=== PATIENT | male | born 1975 | race Caucasian/White ===

== ENCOUNTER 2016-09-09 20:07 | Emergency (ER) | payer BC ==
[~2016-09-09] VITALS: Ht 172.7 cm; Wt 99.7 kg
[2016-09-09 20:12] VITALS: Ht 172.7 cm; Wt 99.7 kg
[2016-09-09] MEDS ORDERED: DEXT1LIQ58 PO (20:52)
[2016-09-09] MEDS ORDERED: AZITHROMYCIN 250 MG TAB PO STA (20:59)
[2016-09-09] MEDS ORDERED: AZITTAB PO (21:02)
[2016-09-09 21:37] VITALS: BP 138/88; PULSE 102; TEMP 37.4; O2SAT 97
--- NOTE | 2016-09-09 22:57 | EMERGENCY ROOM VISIT NOTE ---
History Report prepared by Fannie: Madi Lagos Under the Supervision of: Dr. Jose Singer D.O. First contact with patient: 20:48 Chief Complaint: COUGH Stated Complaint: COUGH History of Present Illness The patient is a 41 year old male who presents to the Emergency Room with complaints of a worsening cough for the past week. The cough produces thick yellow mucous. The patient started to experience flu-like symptoms with his cough one week ago. NyQuil was helping his symptoms. The patient's other symptoms resolved yesterday, which is when he had his last dose of NyQuil. The patient is traveling this coming weekend and would like to rule out pneumonia before he gets on the plain. Source of History: patient Onset: one week Position: other (respiratory) Quality: other (productive cough) Timing: worsening Modifying Factors (Relieving): other (NyQuil) Review of Systems See HPI for pertinent positives & negatives. A total of 10 systems reviewed and were otherwise negative. Past Medical & Surgical Medical Problems: (1) Conjunctivitis Family History Cancer Heart disease Hypertension Lung disease Social History Smoking Status: Never Smoker Marital Status: Housing Status: lives with family Occupation Status: employed Current/Historical Medications Scheduled Azithromycin (Zithromax Z-Derek), 0 PO UD Dextromethorphan-Phenylephrine (Vicks Dayquil Cold & Flu), 30 ML PO PRN UD Allergies Coded Allergies: Penicillins (Unverified Allergy, Mild, 08/16/09) Physical Exam Vital Signs Date Time Temp Pulse Resp B/P Pulse Ox O2 Delivery O2 Flow Rate FiO2 09/09/16 21:37 37.4 102 21 138/88 97 09/09/16 21:35 102 21 138/88 97 Room Air 09/09/16 21:34 97 Room Air 09/09/16 20:12 37.4 108 21 144/86 96 Room Air Physical Exam CONSTITUTIONAL/VITAL SIGNS: Reviewed / noted above. GENERAL: Non-toxic in appearance. INTEGUMENTARY: Warm, dry, and Fox. HEAD: Normocephalic. EYES: without scleral icterus or trauma. ENT/OROPHARYNX: clear and moist. LYMPHADENOPATHY/NECK: Is supple without lymphadenopathy or meningismus. RESPIRATORY: Lungs clear and equal. CARDIOVASCULAR: Regular rate and rhythm. GI/ABDOMEN: Soft and nontender. No organomegaly or pulsatile mass. No rebound or guarding. Normal bowel sounds. EXTREMITIES: Warm and well perfused. BACK: No CVA tenderness. NEUROLOGICAL: Intact without focal deficits. PSYCHIATRIC: normal affect. MUSCULOSKELETAL: Normally developed with good muscle tone. Medical Decision & Procedures Medications Administered Medications (Trade) Dose Ordered Sig/Vivienne Route Start Time Stop Time Status Last Admin Dose Admin Azithromycin (Zithromax Tab) 500 mg NOW STAT PO 09/09/16 20:59 09/09/16 21:01 DC 09/09/16 21:31 500 MG ED Course 2049: Previous medical records were reviewed. The patient was evaluated in room B9. A complete history and physical examination was performed. 2100: Discussed the treatment plan with the patient. He verbalized understanding and agreement. The patient is ready for discharge. Medical Decision The differential that was considered includes acute myocardial infarction, acute coronary syndrome, myocarditis, pericarditis, pericardial effusions / tamponad, esophageal perforation, pulmonary embolism, pneumonia, pneumothorax , cardiomyopathy, congestive heart, anemia , COPD/asthma exacerbation. This is a 41-year-old male who presents to the ED with a chief complaint of cough for the past week. He states it is getting worse. Coughing up yellow sputum. His vital signs stable. His physical exam was unremarkable. He does have a prominent cough. Lungs were clear. Symptoms are likely consistent with a bronchitis. He was started on Z-Derek. Impression Primary Impression: Acute bronchitis Scribe Attestation The scribe's documentation has been prepared under my direction and personally reviewed by me in its entirety. I confirm that the note above accurately reflects all work, treatment, procedures, and medical decision making performed by me. Departure Information Dispostion Home / Self-Care Prescriptions Azithromycin (ZITHROMAX Z-DEREK) 250 Mg Tab 0 PO UD, #1 PKT 2 TABS DAY 1, THEN 1 TAB DAILY FOR 4 DAYS Prov: Jose Singer D.O. 09/09/16 Referrals Damaso Keyes III, M.D. (PCP) Forms HOME CARE DOCUMENTATION FORM, IMPORTANT VISIT INFORMATION Patient Instructions Bronchitis Acute, My [facility] Additional Instructions Zithromax as prescribed. See your doctor if no improvement in the next 7-10 days. Return for worsening or new concerns.
== END 2016-09-09 21:37 | disposition home or self-care (01) ==
LOC: C.EDB 20:10
DX: J20.9 Acute bronchitis, unspecified (principal); Z88.0 Allergy status to penicillin; Z80.9 Family history of malignant neoplasm, unspecified; Z82.49 Family history of ischemic heart disease and other diseases of the circulatory system

== ENCOUNTER 2019-08-09 16:02 | Observation (INO) ==
[2019-08-09] MEDS ORDERED: LABETALOL HCL IV 5 MG/ML 20ML IV STA (16:11)
[2019-08-09] MEDS ORDERED: ASPIRIN CHEW 324 MG PO STA (16:12)
--- NOTE | 2019-08-09 16:26 | Emergency Department Note ---
Entered by Flor High acting as a scribe for Prashanth Ramos MD History of Present Illness General Chief complaint: Chest Pain Stated complaint: CHEST PAIN Time Seen by Provider: 08/09/19 16:08 Source: patient History of Present Illness Onset (ago): day(s) 1 Location: chest Pain Consistency: + intermittent Maximum Pain Intensity: 2 Current Pain Intensity: 2 Quality: + sharp Relieved By: + none Exacerbated By: not by movement Associated symptoms: + chest pain; no diaphoresis, no nausea/vomiting and no shortness of breath Treatments prior to arrival: none The patient is a 44 year old male who presents to the Emergency Room with comp laints of chest pain that started today. The patient notes that yesterday, a nurse came around his workplace and took his blood pressure, and it was 180/100. The patient notes a history of hypertension in his family in his mother and grandfather, who before age 65. Both of his parents had diabetes. He has never been diagnosed with hypertension, but he notes that he has not seen his PCP for several years. The patient notes that today, he experienced some chest pain and discomfort in the middle of his chest. Today he went to the gym and exercised for about an hour, and he did not feel any chest discomfort. He notes that at certain times at work today, he would experience slight chest pain. The patient reports that his work has not been overly stressful lately, and he rate his pain at a 2 or 3. The patient states that the discomfort lasts for several minutes. He denies shortness of breath, nausea, and diaphoresis. The patient denies smoking. Home Medications Home Medications Medication Instructions Recorded Confirmed Type No Known Home Medications 08/09/19 08/09/19 History Allergies Allergy/AdvReac Type Severity Reaction Status Date / Time Penicillins Allergy Mild Rash Unverified 08/09/19 19:23 Past Med/Surg History Medical History No pertinent past medical history Surgical History No pertinent past surgical history Family History Mother Hypertension Diabetes Grandfather Hypertension Coronary heart disease CO age 60 Father Diabetes Social History Preferred Language: Wolof Communication Ability: Effective Machine Clerical Verifier Required: No Beliefs That Will Affect Care: None Current Living Situation: Spouse Feels Safe at Home: Yes Smoking Status: Never smoker Do You Dip or Chew Tobacco: No ; Hx Alcohol Use: No Hx Substance Use: No Review of Systems See HPI for pertinent positives & negatives. and A total of 10 systems reviewed and were otherwise negative Physical Exam Vital Signs Vital Signs - 24 hr 08/09/19 16:04 08/09/19 16:45 08/09/19 17:11 Temperature 37.2 C Temperature Source Oral Pulse Rate 107 H 82 Pulse Rate from SpO2 Sensor 83 Pulse Rhythm Regular Respiratory Rate 18 22 Respiratory Effort / Characteristics Non-Labored Spontaneous Respiratory Depth Normal Blood Pressure 201/120 H 142/102 H Blood Pressure Mean 147 109 Blood Pressure Position Sitting Pulse Oximetry 98 96 Oxygen Delivery Method Room Air Room Air Sepsis Recent Fever Within 48 Hours No Sepsis New/Unexplained Change in Mental Status No Sepsis Action Taken by Nursing No Action Required 08/09/19 17:13 08/09/19 17:14 08/09/19 17:16 Temperature Temperature Source Pulse Rate 74 77 78 Pulse Rate from SpO2 Sensor 76 82 80 Pulse Rhythm Respiratory Rate 19 18 19 Respiratory Effort / Characteristics Respiratory Depth Blood Pressure 157/104 H 160/92 H Blood Pressure Mean 119 111 Blood Pressure Position Pulse Oximetry 95 97 96 Oxygen Delivery Method Sepsis Recent Fever Within 48 Hours Sepsis New/Unexplained Change in Mental Status Sepsis Action Taken by Nursing 08/09/19 17:20 08/09/19 17:30 08/09/19 17:31 Temperature Temperature Source Pulse Rate 75 72 76 Pulse Rate from SpO2 Sensor 75 72 77 Pulse Rhythm Respiratory Rate 22 20 21 Respiratory Effort / Characteristics Respiratory Depth Blood Pressure 146/103 H Blood Pressure Mean 117 Blood Pressure Position Pulse Oximetry 96 94 95 Oxygen Delivery Method Sepsis Recent Fever Within 48 Hours Sepsis New/Unexplained Change in Mental Status Sepsis Action Taken by Nursing 08/09/19 17:40 08/09/19 17:46 08/09/19 17:47 Temperature Temperature Source Pulse Rate 79 72 71 Pulse Rate from SpO2 Sensor 75 69 70 Pulse Rhythm Respiratory Rate 17 18 20 Respiratory Effort / Characteristics Respiratory Depth Blood Pressure 150/95 H Blood Pressure Mean 105 Blood Pressure Position Pulse Oximetry 94 97 96 Oxygen Delivery Method Sepsis Recent Fever Within 48 Hours Sepsis New/Unexplained Change in Mental Status Sepsis Action Taken by Nursing 08/09/19 17:50 08/09/19 18:00 08/09/19 18:01 Temperature Temperature Source Pulse Rate 76 87 68 Pulse Rate from SpO2 Sensor 77 81 69 Pulse Rhythm Respiratory Rate 20 22 20 Respiratory Effort / Characteristics Respiratory Depth Blood Pressure 156/87 H Blood Pressure Mean 97 Blood Pressure Position Pulse Oximetry 93 95 95 Oxygen Delivery Method Sepsis Recent Fever Within 48 Hours Sepsis New/Unexplained Change in Mental Status Sepsis Action Taken by Nursing 08/09/19 18:02 08/09/19 18:10 08/09/19 18:16 Temperature Temperature Source Pulse Rate 70 71 72 Pulse Rate from SpO2 Sensor 72 70 73 Pulse Rhythm Respiratory Rate 20 17 21 Respiratory Effort / Characteristics Respiratory Depth Blood Pressure 157/98 H Blood Pressure Mean 115 Blood Pressure Position Pulse Oximetry 95 98 95 Oxygen Delivery Method Sepsis Recent Fever Within 48 Hours Sepsis New/Unexplained Change in Mental Status Sepsis Action Taken by Nursing 08/09/19 18:20 08/09/19 18:30 08/09/19 18:31 Temperature Temperature Source Pulse Rate 71 74 73 Pulse Rate from SpO2 Sensor 71 74 73 Pulse Rhythm Respiratory Rate 23 15 15 Respiratory Effort / Characteristics Respiratory Depth Blood Pressure 149/91 H Blood Pressure Mean 96 Blood Pressure Position Pulse Oximetry 95 97 97 Oxygen Delivery Method Sepsis Recent Fever Within 48 Hours Sepsis New/Unexplained Change in Mental Status Sepsis Action Taken by Nursing 08/09/19 18:40 08/09/19 18:46 08/09/19 18:50 Temperature Temperature Source Pulse Rate 74 74 70 Pulse Rate from SpO2 Sensor 75 71 68 Pulse Rhythm Respiratory Rate 23 21 25 H Respiratory Effort / Characteristics Respiratory Depth Blood Pressure 154/98 H Blood Pressure Mean 107 Blood Pressure Position Pulse Oximetry 96 97 97 Oxygen Delivery Method Sepsis Recent Fever Within 48 Hours Sepsis New/Unexplained Change in Mental Status Sepsis Action Taken by Nursing GENERAL: Patient is in no acute distress. HEENT: No acute trauma, normocephalic atraumatic, mucous membranes moist, no nasal congestion, no scleral icterus. NECK: No stridor, no adenopathy, no meningismus, trachea is midline. LUNGS: Clear to auscultation bilaterally, no wheeze, no rhonchi, breath sounds equal. HEART: Without murmurs gallops or rubs, regular rate and rhythm. CHEST: Nontender chest wall. ABDOMEN: Soft, nontender, bowel sounds positive, no hernias, no peritonitis. EXTREMITIES: No cyanosis or edema, full range of motion of all the joints without pain or difficulty, no signs for acute trauma. NEUROLOGIC: Oriented x 3, no acute motor or sensory deficits, no focal weakness. SKIN: No rash, no jaundice, no diaphoresis. Course Course 1613: Past medical records reviewed. The patient was evaluated in room C01B. A complete history and physical exam was performed. 1740: I spoke to Dr. Jefferson, who recommends keeping the patient overnight due to his high blood pressure. He believes it would be beneficial to control his blood pressure and look at possible medication for regulation. 180: I rechecked on the patient and relayed the cardiologists recommendation. The patient was agreeable with remaining in the hospital for further evaluation. 1818: I spoke to Shanda Martines PA-C, regarding the patient. She agreed to take over care of the patient. Dr. Kendall will evaluate him for further evaluation. The patient understands and is agreeable to the plan. He will be further evaluated. Administered Medications Discontinued Medications Amlodipine Besylate (Norvasc) 5 mg PO NOW ONE Stop: 08/09/19 19:28 Last Admin: 08/09/19 19:38 Dose: 5 mg Documented by: [id number] Aspirin (Aspirin) 324 mg PO NOW STA Stop: 08/09/19 16:13 Last Admin: 08/09/19 17:08 Dose: 324 mg Documented by: [id number] Labetalol HCl (Normodyne) 20 mg IV NOW STA Stop: 08/09/19 16:12 Last Admin: 08/09/19 17:08 Dose: 20 mg Documented by: [id number] Cosigned by: [id number] Medical Decision Making Differential Diagnosis Differential diagnosis includes: hypertension, angina, CO, reflux, gastritis, electrolyte imbalance, as well as others were considered Medical Records Attestation: I reviewed the patient's medical records. Home Medications Current Medication List: was personally reviewed by me Laboratory Data Attestation: I reviewed the patient's lab results. Result diagrams: 08/09/19 17:03 08/09/19 17:03 Lab Results 08/09/19 08/09/19 08/09/19 Range/Units 17:03 17:03 17:03 WBC 5.73 (4.8-10.8) K/uL RBC 5.09 (4.7-6.1) M/uL Hgb 15.5 (14.0-18.0) g/dL Hct 43.7 (42-52) % MCV 85.9 (80-100) fL MCH 30.5 (25-34) pg MCHC 35.5 (32-36) g/dL RDW Std Deviation 40.7 (36.4-46.3) fL RDW Coeff of Hansel 13.0 (11.5-14.5) % Plt Count 198 (130-400) K/uL MPV 9.8 (7.4-10.4) fL Immature Gran % (Auto) 0.2 % Neut % (Auto) 58.7 % Lymph % (Auto) 28.8 % [place] % (Auto) 10.1 % Eos % (Auto) 1.9 % Baso % (Auto) 0.3 % Immature Gran # (Auto) 0.01 (0.00-0.02) K/uL Neut # (Auto) 3.36 (1.4-6.5) K/uL Lymph # (Auto) 1.65 (1.2-3.4) K/uL [place] # (Auto) 0.58 (0.11-0.59) K/uL Eos # (Auto) 0.11 (0-0.5) K/uL Baso # (Auto) 0.02 (0-0.2) K/uL PT 10.6 (9.0-12.0) Seconds INR 1.0 (0.9-1.1) APTT 23.8 (21.0-31.0) Seconds PTT Ratio 0.9 Sodium 139 (136-145) mmol/L Potassium 3.8 (3.5-5.1) mmol/L Chloride 109 H (98-107) mmol/L Carbon Dioxide 26 (21-32) mmol/L Anion Gap 4.0 (3-11) BUN 24 H (7-18) mg/dl Creatinine 0.93 (0.6-1.4) mg/dl Est Cr Clr Drug Dosing 121.3 ml/min Est GFR ( Amer) 114.5 Est GFR (Non-Af Amer) 98.8 BUN/Creatinine Ratio 25.9 H (10-20) Glucose 92 (70-99) mg/dl Calcium 9.5 (8.5-10.1) mg/dl Magnesium 2.0 (1.8-2.4) mg/dl Total Bilirubin 0.4 (0.2-1) mg/dl AST 29 (15-37) U/L ALT 58 (12-78) U/L Alkaline Phosphatase 55 (45-117) U/L Troponin I < 0.015 (0-0.045) ng/ml Total Protein 8.2 (6.4-8.2) gm/dl Albumin 4.5 (3.4-5.0) gm/dl Globulin 3.7 (2.5-4.0) gm/dl Albumin/Globulin Ratio 1.2 (0.9-2) Lipase 135 (73-393) U/L Imaging Data Radiologist's Impression: Radiology results as stated below per my review and the radiologist's interpretation: XR chest 1V portable CLINICAL HISTORY: Atypical chest pain COMPARISON STUDY: No previous studies for comparison. FINDINGS: The cardiac and mediastinal contours are normal. There is no evidence of focal pulmonary consolidation. There is no evidence of failure. No pleural effusions are visualized.[ IMPRESSION: No active disease in the chest. ACT 112: Negative or not required by law. Electronically signed by: Freddie Davila M.D. 08/09/2019 4:44 PM ECG Data Attestation: I personally reviewed and interpreted this ECG as follows: Indication: + chest pain Rate (beats per minute): 92 Rhythm: + normal sinus ECG Intervals/blocks: + Normal QT-c (422) ECG ST segments: + Nonspecific ST abnormalities ECG Findings: no PVCs Blood Pressure Blood Pressure Findings: Elevated blood pressure Blood Pressure Disposition: further management by hospitalist [facility] Narrative There is no leukocytosis or concerning anemia. No coagulopathy. No significant electrolyte abnormality or kidney failure. No liver enzyme elevation. No evidence for pancreatitis. EKG shows a normal sinus rhythm with some nonspecific ST change, no acute ischemia. Cardiac enzyme testing x1 is not consistent with acute cardiac injury. Chest film does not show pneumonia, mediastinal widening or pneumothorax. The patient was given oral aspirin. He was given 10 mg of IV labetalol because of the elevated blood pressure. The patient's blood pressure is now much better controlled. He is currently resting comfortably. He has no chest pain. I talked to the [facility] vacuum truck driver tactical response group officer. Given his risk factors, given the higher blood pressure, I hospital stay and further work-up was felt warranted. Of note, as per my calculation, the patient's heart score is a 3. I talked to the patient about his findings, I spoke with case management. The on-call hospitalist was consulted. Continuous Cardiac Monitoring: An order was placed for continuous cardiac monitoring. The monitor shows a rate of 90 with normal sinus rhythm. Impression & Plan Chest pain, precordial, Hypertensive urgency Discharge Plan Visit Data *Final* Discharge Date/Time: 08/09/19 20:16 Chief Complaint: Chest Pain Stated Complaint: CHEST PAIN ED Provider: Prashanth Ramos Discharge Problem: Chest pain, precordial, Hypertensive urgency Patient Disposition: Admitted As Inpatient Discharge Instructions Interventions: ED Discharge Assessment Last Done: 08/09/19 20:16 Risk - HEART Scoring HEART Score for Major Cardiac Events History: Slightly Suspicious EKG: Non-Specific Repolarization Disturbance Age: 45-64 Years of Age Risk Factors: 1-2 Risk Factors Initial Troponin: Normal Limit Total Points: 3 Risk Level: Low Risk for Major Adverse Cardiac Event HEART Score Interpretation: Score interpretation (as per derivation study): HEART Adverse Cardiac Score Event Risk Management 0-3 0.9-1.7% In the HEART Score study, these patients were discharged. 4-6 12-16.6% In the HEART Score study, these patients were admitted to the hospital. 7-10 50-65% In the HEART Score study, these patients were candidates for early invasive measurements. Original Source: 1. Douglas AJ, [place] BE, Isidro ARCEILA. Chest pain in the emergency room: value of the HEART score. Neth Heart J. 2008; 16(6):191-6. The scribe's documentation has been prepared under my direction and personally reviewed by me in its entirety. I confirm that the note above accurately reflects all work, treatment, procedures, and medical decision making performed by me.
--- NOTE | 2019-08-09 16:46 | XRay Report ---
XR chest 1V portable CLINICAL HISTORY: Atypical chest pain COMPARISON STUDY: No previous studies for comparison. FINDINGS: The cardiac and mediastinal contours are normal. There is no evidence of focal pulmonary co nsolidation. There is no evidence of failure. No pleural effusions are visualized.[ IMPRESSION: No active disease in the chest. ACT 112: Negative or not required by law. Electronically signed by: Freddie Davila M.D. 08/09/2019 4:44 PM
[2019-08-09 17:11] LABS: Basophils # (auto) 0.02 K/uL (0-0.2); Basophils % (auto) 0.3 %; Eosinophils # (auto) 0.11 K/uL (0-0.5); Eosinophils % (auto) 1.9 %; Hematocrit (blood only) 43.7 % (42-52); Hemoglobin 15.5 g/dL (14.0-18.0); Immature Granulocytes # (auto) 0.01 K/uL (0.00-0.02); Immature Granulocytes % (auto) 0.2 %; Lymphocytes # (auto) 1.65 K/uL (1.2-3.4); Lymphocytes % (auto) 28.8 %; Mean Corpuscular Hemoglobin 30.5 pg (25-34); Mean Corpuscular Hgb Conc 35.5 g/dL (32-36); Mean Corpuscular Volume 85.9 fL (80-100); Mean Platelet Volume 9.8 fL (7.4-10.4); Monocytes # (auto) 0.58 K/uL (0.11-0.59); Monocytes % (auto) 10.1 %; Neutrophils # (auto) 3.36 K/uL (1.4-6.5); Neutrophils % (auto) 58.7 %; Platelet Count 198 K/uL (130-400); RDW Standard Deviation 40.7 fL (36.4-46.3); Red Blood Count 5.09 M/uL (4.7-6.1); White Blood Count 5.73 K/uL (4.8-10.8)
[2019-08-09 17:26] LABS: Alanine Aminotransferase 58 U/L (12-78); Albumin Level 4.5 gm/dl (3.4-5.0); Aspartate Aminotransferase 29 U/L (15-37); BUN Creatinine Ratio 25.9 (10-20); Blood Urea Nitrogen 24 mg/dl (7-18); Calcium 9.5 mg/dl (8.5-10.1); Carbon Dioxide 26 mmol/L (21-32); Chloride 109 mmol/L (98-107); Creatinine Clr Calc Pharmacy 121.3 ml/min; Est GFR (African American) 114.5; Est GFR (Non-African American) 98.8; Glucose 92 mg/dl (70-99); Lipase 135 U/L (73-393); Potassium 3.8 mmol/L (3.5-5.1); Sodium 139 mmol/L (136-145)
[2019-08-09 17:27] LABS: Partial Thromboplastin Ratio 0.9; Partial Thromboplastin Time 23.8 Seconds (21.0-31.0); Prothrombin Time 10.6 Seconds (9.0-12.0)
[2019-08-09 17:31] LABS: Albumin Globulin Ratio 1.2 (0.9-2); Alkaline Phosphatase 55 U/L (45-117); Bilirubin,Total 0.4 mg/dl (0.2-1); Globulin 3.7 gm/dl (2.5-4.0); Total Protein 8.2 gm/dl (6.4-8.2); Troponin I < 0.015 ng/ml (0-0.045)
--- NOTE | 2019-08-09 18:01 | Electrocardiogram Report ---
Test Reason : Blood Pressure : / mmHG Vent. Rate : 092 BPM Atrial Rate : 092 BPM P-R Int : 144 ms QRS Dur : 090 ms QT Int : 342 ms P-R-T Axes : 056 058 030 degrees QTc Int : 422 ms Normal sinus rhythm Nonspecific ST abnormality Abnormal ECG No previous ECGs available Confirmed by Josué Lane ([id number]) on 08/09/2019 6:00:55 PM Referred By: REFERRED SELF Confirmed By:Yamil Lane
--- NOTE | 2019-08-09 19:10 | History & Physical Report ---
Date of Service August 09, 2019 Assessment & Plan (1) Chest pain: Pt is 44 y/o M without known PMH presented to ER with c/o left sided chest tightness today at 9AM lasting 5-10 minutes. Denies SOB, diaphoresis, N/V In ER afebrile, P: 107, R: 18, BP: 201/120, 95% on RA. Initial troponin negative. EKG sinus rhythm, non specific ST changes CHEST PAIN R/O ACS. Risk factors: HTN, FH. DDX: Hypertensive Emergency -No recurrent CP since this morning -In ER given 324mg aspirin, labetalol 20mg IV with pulse down to 68, BP down to 156/87 -Monitor Vitals -Repeat EKG in am -Will trend troponin -Echo -lipid panel in am -aspirin -Nitro prn CP and repeat EKG for CP -start amlodipine (2) Hypertensive urgency: Pt with probable untreated underlying HTN In ER initial BP: 201/120 down to 156/87 after IV labetalol 20mg No current CP, dizziness -Start amlodipine -Monitor BP DVT Prophylaxis -Low risk, ambulate Full Code as per discussion with pt Planning to follow with Dr Keyes for routine care (Had appt scheduled for 08/10/2019) Pt was seen and care coordinated with Dr Kendall. See addendum History of Present Illness Chief Complaint: CP Primary Care Provider: Damaso Keyes MD Pt is 44 y/o M without known PMH presented to ER with c/o CP today. Reports today at 9:00AM was sitting at work and started with left chest tightness that lasted 5-10 minutes. Denies any associated SOB, diaphoresis, N/V. No prior treatment. No recurrent CP today. Walked 1 mile on treadmill this morning. Reports walks on treadmill a couple of times a week and never has any CP or SOB. Reports in fall of 2018 had some left sided chest tightness with doing yard work and heavy lifting. States has had his BP checked occasionally and BP's have been elevated in past. Yesterday had nurse check his BP and was 180/100 so he made an appt with PCP on 08/10/2019. Pt hasn't seen PCP for years. Denies fever/chills, diaphoresis, N/V/D/C, RENEE, dizziness, syncope, vision changes, neck pain, SOB, orthopnea, palpitations, cough, sore throat, choking, otalgia, rhinorrhea, abdominal pain, paresthesias, weakness, extremity weakness, extremity edema, rashes, urinary symptoms. Allergies Allergy/AdvReac Type Severity Reaction Status Date / Time Penicillins Allergy Mild Rash Unverified 08/09/19 19:23 Home Medications Home Medications Medication Instructions Recorded Confirmed Type No Known Home Medications 08/09/19 08/09/19 History Past Med/Surg History Medical History No pertinent past medical history Surgical History No pertinent past surgical history Family History Mother Hypertension Diabetes Grandfather Hypertension Coronary heart disease [place] age 60 Father Diabetes Social History Preferred Language: Thai Feels Safe at Home: Yes Smoking Status: Never smoker Hx Alcohol Use: No Hx Substance Use: No Review of Systems Review of Systems: All systems reviewed & are unremarkable except as noted in HPI & below Physical Exam Physical Exam: General: no distress, overweight Head: normocephalic, atraumatic Eyes: PERRL, EOM's intact, conjunctiva non-injected, anicteric ENT: normal inspection external ears, nose, mucous membranes moist Neck: supple, trachea midline Lungs: clear, no respiratory distress, no wheezing/rhonchi/rales CV: RRR, no murmur, no pretibial edema Abd: normal BS, soft, non-tender Ext: no cyanosis, no calf tenderness Neuro: A&O x 3, no focal deficits noted, normal affect Skin: warm, dry Results & Data Vital Signs (Past 12 Hours) Vital Signs Temp Pulse Resp BP Pulse Ox 08/09/19 19:00 78 25 H 98 08/09/19 18:50 70 25 H 97 08/09/19 18:46 74 21 154/98 H 97 08/09/19 18:40 74 23 96 08/09/19 18:31 73 15 149/91 H 97 08/09/19 18:30 74 15 97 08/09/19 18:20 71 23 95 08/09/19 18:16 72 21 157/98 H 95 08/09/19 18:10 71 17 98 08/09/19 18:02 70 20 95 08/09/19 18:01 68 20 156/87 H 95 08/09/19 18:00 87 22 95 08/09/19 17:50 76 20 93 08/09/19 17:47 71 20 96 08/09/19 17:46 72 18 150/95 H 97 08/09/19 17:40 79 17 94 08/09/19 17:31 76 21 146/103 H 95 08/09/19 17:30 72 20 94 08/09/19 17:20 75 22 96 08/09/19 17:16 78 19 160/92 H 96 08/09/19 17:14 77 18 157/104 H 97 08/09/19 17:13 74 19 95 08/09/19 17:11 82 22 142/102 H 96 08/09/19 16:04 37.2 C 107 H 18 201/120 H 98 Laboratory Results Short CBC 08/09/19 Range/Units 17:03 WBC 5.73 (4.8-10.8) K/uL Hgb 15.5 (14.0-18.0) g/dL Hct 43.7 (42-52) % Plt Count 198 (130-400) K/uL BMP 08/09/19 17:03 Sodium 139 Potassium 3.8 Chloride 109 H Carbon Dioxide 26 BUN 24 H Creatinine 0.93 Glucose 92 Calcium 9.5 Cardiac Enzymes 08/09/19 Range/Units 17:03 Troponin I < 0.015 (0-0.045) ng/ml Liver Function 08/09/19 Range/Units 17:03 Total Bilirubin 0.4 (0.2-1) mg/dl AST 29 (15-37) U/L ALT 58 (12-78) U/L Alkaline Phosphatase 55 (45-117) U/L Albumin 4.5 (3.4-5.0) gm/dl Diagnostic Findings CXR: IMPRESSION: No active disease in the chest. ECG Rate (beats per minute): 92 Rhythm: sinus rhythm Findings: + nonspecific-ST abn Comparison ECG Date: no prior available Supervising Physician Co-Signing Physician Notes I, Dr. Mart Kendall, have seen and examined the patient with physician assistant professor of marine biology and agree with the assessment and plan as above and would like to comment that on exam General: no acute distress HEENT: normal Chest: no chest wall tenderness on palpation Lungs: no wheezing, no stridor, clear to auscultation bilaterally Heart: regular rate, regular rhythm Abdomen: soft, nontender, bowel sounds present Lower extremities: no gross edema Chest pain Hypertensive Urgency -patient noted to have hypertensive blood pressures in recent days. 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 he does go to the gym. he denies do any weight lifting activities. he does walk on the treadmill. 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 but around 9 AM he started having left sided chest pain. Pain symptoms lasted until he went to the emergency where he got medications. Patient's blood pressures noted to be very elevated 201/120 and then trending down -no chest pain when seen by hospitalist and physician assistant professor of marine biology -initial troponin negative, place on telemetry, trend the troponins, obtain echocardiogram -will start patient on regimen of amlodipine 5 mg daily for now. hospitalist team will request cardiology consult and work together to titrate blood pressure medications and rule out acute coronary syndrome My hospitalist colleague will be following the patient starting on 08/10/2019
[2019-08-09] MEDS ORDERED: AMLODIPINE BESYLATE 5 MG TAB PO ONE (19:27)
[2019-08-09] MEDS ORDERED: NITROGLYCERIN SL 0.4 MG/TAB TAB SL PRN (20:42)
[2019-08-09] MEDS ORDERED: ACETAMINOPHEN 325 MG TAB PO PRN (20:42)
[2019-08-09] MEDS ORDERED: ONDANSETRON INJ 2 MG/ML 2 ML VIAL IV PRN (20:42)
[2019-08-10 06:05] LABS: Hematocrit (blood only) 41.9 % (42-52); Hemoglobin 14.5 g/dL (14.0-18.0); Mean Corpuscular Hemoglobin 30.7 pg (25-34); Mean Corpuscular Hgb Conc 34.6 g/dL (32-36); Mean Corpuscular Volume 88.6 fL (80-100); Platelet Count 196 K/uL (130-400); RDW Coefficient of Variation 13.1 % (11.5-14.5); RDW Standard Deviation 42.6 fL (36.4-46.3); Red Blood Count 4.73 M/uL (4.7-6.1); White Blood Count 5.38 K/uL (4.8-10.8)
[2019-08-10 06:45] LABS: BUN Creatinine Ratio 23.9 (10-20); Blood Urea Nitrogen 22 mg/dl (7-18); Calcium 8.8 mg/dl (8.5-10.1); Carbon Dioxide 28 mmol/L (21-32); Chloride 111 mmol/L (98-107); Creatinine Clr Calc Pharmacy 122.8 ml/min; Est GFR (Non-African American) 100.1; Glucose 96 mg/dl (70-99); Potassium 4.1 mmol/L (3.5-5.1); Sodium 142 mmol/L (136-145)
[2019-08-10 06:50] LABS: Chol HDL Ratio 7; Cholesterol 245 mg/dl (0-200); HDL Cholesterol 36 mg/dl; LDL Cholesterol Calculated 187 mg/dl; Triglycerides 111 mg/dl (0-150); Troponin I < 0.015 ng/ml (0-0.045); VLDL Cholesterol 22 mg/dl
[2019-08-10] MEDS ORDERED: AMLODIPINE BESYLATE 5 MG TAB PO SCH (09:00)
[2019-08-10] MEDS ORDERED: ASPIRIN 81 MG ECTAB PO SCH (09:00)
--- NOTE | 2019-08-10 12:20 | Cardiology Consultation ---
Date of Consultation August 10, 2019 Assessment & Plan (1) Hypertensive urgency: (2) Chest pain: The patient's cardiac markers are negative and his EKG shows no acute changes. I believe that his increased shortness of breath recently and chest discomfort is related to hypertensive urgency. His blood pressure has improved this morning with the start of amlodipine. His cholesterol is markedly elevated along with a low HDL which is of concern. I think before leaving the hospital he should have an exercise stress echocardiogram to screen him for coronary artery disease. If that study is negative, then I believe he can be discharged to outpatient follow-up. I will arrange the stress test. History of Present Illness Attending Physician: Kamila Perea MD History of Present Illness This is a 44-year-old male patient with a history of hypertension. He has known about his hypertension but has been on no medications. Several weeks ago he was noted to have hypertension when it was checked by his employees nurse. He states that the systolic blood pressure was 180. He continued to work and do his usual routine. He admits that he has not felt well. He has had increased shortness of breath with activities. He then presented to the emergency department with chest discomfort. His EKGs showed no acute changes. His cardiac markers have been negative. He was markedly hypertensive in the emergency department and given a dose of IV labetalol to improve his hypertension. He was then admitted. He has had no additional chest pain or shortness of breath. He has been started on a daily dose of amlodipine which has improved his hypertension. He has a family history of diabetes as well as hypertension. Also a family history of coronary artery disease. Allergies Allergy/AdvReac Type Severity Reaction Status Date / Time Penicillins Allergy Mild Rash Unverified 08/09/19 19:23 Home Medications Home Medications Medication Instructions Recorded Confirmed Type No Known Home Medications 08/09/19 08/09/19 History Patient History Medical History No pertinent past medical history Surgical History No pertinent past surgical history Family History Mother Hypertension Diabetes Grandfather Hypertension Coronary heart disease [place] age 60 Father Diabetes Social History Preferred Language: Armenian Communication Ability: Effective Shirt Trimmer Required: No Beliefs That Will Affect Care: None Current Living Situation: Spouse Feels Safe at Home: Yes Smoking Status: Never smoker Do You Dip or Chew Tobacco: No ; Hx Alcohol Use: No Hx Substance Use: No Review of Systems Review of Systems: All systems reviewed & are unremarkable except as noted in HPI & below Nothing additional to add. Physical Exam Physical Exam: General: no acute distress and stated age Head: normocephalic, no masses, lesions, tenderness or abnormalities Eyes: conjunctiva are pink and non-injected, sclera clear Neck: supple, no adenopathy, no bruits, normal jugular venous pulse, no hepatojugular reflux Chest: normal shape and normal respiratory effort Lungs: clear to auscultation and percussion Cardiac Exam: - regular rate & rhythm, no murmurs gallops or rubs - normal S1, normal S2 Pulses: 2(+) throughout Abdomen: abdomen soft, non-tender, no abnormal masses and no hepatosplenomegaly Musculoskeletal: no gait disturbance, no joint inflammation, no deforming arthritis Extremities: no edema and no cyanosis Neuro: grossly normal exam Results & Data Vital Signs (Past 12 Hours) Vital Signs Temp Pulse Pulse Pulse Resp BP BP 08/10/19 07:54 92 H 08/10/19 07:30 36.5 C 58 L 18 142/80 H 08/10/19 03:10 36.3 C L 59 L 18 147/94 H Pulse Ox 08/10/19 07:54 08/10/19 07:30 95 08/10/19 03:10 98 Laboratory Results Laboratory Results - last 24 hr 08/09/19 08/09/19 08/09/19 17:03 17:03 17:03 WBC 5.73 RBC 5.09 Hgb 15.5 Hct 43.7 MCV 85.9 MCH 30.5 MCHC 35.5 RDW Std Deviation 40.7 RDW Coeff of Hansel 13.0 Plt Count 198 MPV 9.8 Immature Gran % (Auto) 0.2 Neut % (Auto) 58.7 Lymph % (Auto) 28.8 Fountain % (Auto) 10.1 Eos % (Auto) 1.9 Baso % (Auto) 0.3 Immature Gran # (Auto) 0.01 Neut # (Auto) 3.36 Lymph # (Auto) 1.65 Fountain # (Auto) 0.58 Eos # (Auto) 0.11 Baso # (Auto) 0.02 PT 10.6 INR 1.0 APTT 23.8 PTT Ratio 0.9 Sodium 139 Potassium 3.8 Chloride 109 H Carbon Dioxide 26 Anion Gap 4.0 BUN 24 H Creatinine 0.93 Est Cr Clr Drug Dosing 121.3 Est GFR ( Amer) 114.5 Est GFR (Non-Af Amer) 98.8 BUN/Creatinine Ratio 25.9 H Glucose 92 Calcium 9.5 Magnesium 2.0 Total Bilirubin 0.4 AST 29 ALT 58 Alkaline Phosphatase 55 Troponin I < 0.015 Total Protein 8.2 Albumin 4.5 Globulin 3.7 Albumin/Globulin Ratio 1.2 Triglycerides Cholesterol LDL Cholesterol, Calc VLDL Cholesterol, Calc HDL Cholesterol Cholesterol/HDL Ratio Lipase 135 08/09/19 08/10/19 08/10/19 23:00 05:35 05:35 WBC 5.38 RBC 4.73 Hgb 14.5 Hct 41.9 L MCV 88.6 MCH 30.7 MCHC 34.6 RDW Std Deviation 42.6 RDW Coeff of Hansel 13.1 Plt Count 196 MPV 10.0 Immature Gran % (Auto) Neut % (Auto) Lymph % (Auto) Fountain % (Auto) Eos % (Auto) Baso % (Auto) Immature Gran # (Auto) Neut # (Auto) Lymph # (Auto) Fountain # (Auto) Eos # (Auto) Baso # (Auto) PT INR APTT PTT Ratio Sodium 142 Potassium 4.1 Chloride 111 H Carbon Dioxide 28 Anion Gap 3.0 BUN 22 H Creatinine 0.92 Est Cr Clr Drug Dosing 122.8 Est GFR ( Amer) 116.0 Est GFR (Non-Af Amer) 100.1 BUN/Creatinine Ratio 23.9 H Glucose 96 Calcium 8.8 Magnesium Total Bilirubin AST ALT Alkaline Phosphatase Troponin I < 0.015 < 0.015 Total Protein Albumin Globulin Albumin/Globulin Ratio Triglycerides 111 Cholesterol 245 H LDL Cholesterol, Calc 187 VLDL Cholesterol, Calc 22 HDL Cholesterol 36 Cholesterol/HDL Ratio 7 Lipase 08/10/19 05:35 WBC RBC Hgb Hct MCV MCH MCHC RDW Std Deviation RDW Coeff of Hansel Plt Count MPV Immature Gran % (Auto) Neut % (Auto) Lymph % (Auto) Fountain % (Auto) Eos % (Auto) Baso % (Auto) Immature Gran # (Auto) Neut # (Auto) Lymph # (Auto) Fountain # (Auto) Eos # (Auto) Baso # (Auto) PT INR APTT PTT Ratio Sodium Potassium Chloride Carbon Dioxide Anion Gap BUN Creatinine Est Cr Clr Drug Dosing Est GFR ( Amer) Est GFR (Non-Af Amer) BUN/Creatinine Ratio Glucose Calcium Magnesium Total Bilirubin AST ALT Alkaline Phosphatase Troponin I Cancelled Total Protein Albumin Globulin Albumin/Globulin Ratio Triglycerides Cholesterol LDL Cholesterol, Calc VLDL Cholesterol, Calc HDL Cholesterol Cholesterol/HDL Ratio Lipase Medications Administered Current Inpatient Medications Acetaminophen (Tylenol) 650 mg PO Q4H PRN PRN Reason: Pain or Fever Stop: 09/08/19 20:41 Amlodipine Besylate (Norvasc) 5 mg PO [facility] Stop: 09/09/19 08:59 Last Admin: 08/10/19 08:13 Dose: 5 mg Documented by: Aspirin (Ecotrin Ectab) 81 mg PO [facility] Stop: 09/09/19 08:59 Last Admin: 08/10/19 08:13 Dose: 81 mg Documented by: Nitroglycerin (Nitrostat) 0.4 mg SL UD PRN PRN Reason: Chest Pain Stop: 09/08/19 20:41 Ondansetron HCl (Zofran) 4 mg IV Q6H PRN PRN Reason: Nausea Stop: 09/08/19 20:41
[2019-08-10] MEDS ORDERED: lisinopriL 10 MG TAB PO SCH (13:15)
--- NOTE | 2019-08-10 15:05 | Hospitalist Progress Note ---
Date of Service August 10, 2019 Assessment & Plan (1) Chest pain: Pt is 44 y/o M without known PMH presented to ER with c/o left sided chest tightness today at 9AM lasting 5-10 minutes. Denies SOB, diaphoresis, N/V Possible related to hypertensive urgency Troponin x3 negative EKG showed sinus rhythm with non specific ST changes Cardiology on board Exercise stress echo was normal with no evidence of myocardial ischemia. Blood pressure elevated during stress exercise echo Received Aspirin 324mg in the ER and was starting on asa 81mg Chol 245, LDL 187 and HDL 36 Pt was advised to follow a low cholesterol diet Will defer to PCP to start on a low dose statin as outpatient Case discussed with cardiology and ok from cardiology standpoint to discharge home Clinically stable (2) Hypertensive urgency: Pt with probable untreated underlying HTN BP on admission 201/120 BP dropped 156/87 after receiving IV labetalol 20mg Continue amlodipine 5mg daily Lisinopril 10mg adding Pharmacology and major side effects about Lisinopril and Amlodipine discussed with patient Will check BMP in 1 week after starting the Lisinopril to monitor electrolytes and kidney function Continue monitor BP DVT Prophylaxis Low risk, ambulate CODE STATUS Full Code Disposition Follow up with your PCP Dr. Keyes on 08/14 @ 1:45 PM Subjective Pt was seen and examined Sitting in bed with no distress Pt said that he feels fine He said that he feels ready to go to the gym now He denies any chest pain, palpitation, dizziness and SOB Physical Exam Physical Exam: General- No acute distress Head- atraumatic Eyes- PERRL, EOMI, ENT- oropharynx clear Neck- supple, no JVD Lungs- clear to auscultation Heart- regular rhythm; no murmur Abdomen- normal bowel sounds, soft, nontender Extremities- no calf tenderness Neuro- alert, oriented x 3; PERRL, EOMI; no facial palsy; no dysarthria Skin- warm & dry Results & Data ([facility]) Vital Signs (Past 12 Hours) Vital Signs Temp Pulse Pulse Pulse Resp BP BP 08/10/19 14:17 36.5 C 66 18 150/80 H 08/10/19 12:00 36.5 C 66 18 150/80 H 08/10/19 07:54 92 H 08/10/19 07:30 36.5 C 58 L 18 142/80 H 08/10/19 03:10 36.3 C L 59 L 18 147/94 H Pulse Ox 08/10/19 14:17 99 08/10/19 12:00 99 08/10/19 07:54 08/10/19 07:30 95 08/10/19 03:10 98
--- NOTE | 2019-08-10 17:25 | Electrocardiogram Report ---
Test Reason : Blood Pressure : / mmHG Vent. Rate : 057 BPM Atrial Rate : 057 BPM P-R Int : 144 ms QRS Dur : 092 ms QT Int : 424 ms P-R-T Axes : 029 055 041 degrees QTc Int : 412 ms Sinus bradycardia Otherwise normal ECG When compared with ECG of 09-AUG-2019 16:11, Vent. rate has decreased BY 35 BPM Confirmed by Josué Lane ([id number]) on 08/10/2019 5:25:20 PM Referred By: REFERRED SELF Confirmed By:Yamil Lane
--- NOTE | 2019-08-12 09:57 | Discharge Summary ---
Date of Service August 10, 2019 Admission HPI Per Admitting Provider Pt is 44 y/o M without known PMH presented to ER with c/o CP today. Reports today at 9:00AM was sitting at work and started with left chest tightness that lasted 5-10 minutes. Denies any associated SOB, diaphoresis, N/V. No prior treatment. No recurrent CP today. Walked 1 mile on treadmill this morning. Reports walks on treadmill a couple of times a week and never has any CP or SOB. Reports in fall of 2018 had some left sided chest tightness with doing yard work and heavy lifting. States has had his BP checked occasionally and BP's have been elevated in past. Yesterday had nurse check his BP and was 180/100 so he made an appt with PCP on 08/10/2019. Pt hasn't seen PCP for years. Denies fever/chills, diaphoresis, N/V/D/C, RENEE, dizziness, syncope, vision changes, neck pain, SOB, orthopnea, palpitations, cough, sore throat, choking, otalgia, rhinorrhea, abdominal pain, paresthesias, weakness, extremity weakness, extremity edema, rashes, urinary symptoms. Admission Exam Per Admitting Provider General: no distress, overweight Head: normocephalic, atraumatic Eyes: PERRL, EOM's intact, conjunctiva non-injected, anicteric ENT: normal inspection external ears, nose, mucous membranes moist Neck: supple, trachea midline Lungs: clear, no respiratory distress, no wheezing/rhonchi/rales CV: RRR, no murmur, no pretibial edema Abd: normal BS, soft, non-tender Ext: no cyanosis, no calf tenderness Neuro: A&O x 3, no focal deficits noted, normal affect Skin: warm, dry Principal Diagnosis Hypertensive Urgency Chest pain Dyslipidemia Discharge Exam General- No acute distress Head- atraumatic Eyes- PERRL, EOMI, ENT- oropharynx clear Neck- supple, no JVD Lungs- clear to auscultation Heart- regular rhythm; no murmur Abdomen- normal bowel sounds, soft, nontender Extremities- no calf tenderness Neuro- alert, oriented x 3; PERRL, EOMI; no facial palsy; no dysarthria Skin- warm & dry Discharge Data Allergies Allergy/AdvReac Type Severity Reaction Status Date / Time Penicillins Allergy Mild Rash Unverified 08/09/19 19:23 Consultations 08/09/19 18:14 ED Decision to Admit Stat 08/10/19 08:00 Consult Cardiology Routine Ordered Studies XR chest 1V portable CLINICAL HISTORY: Atypical chest pain COMPARISON STUDY: No previous studies for comparison. FINDINGS: The cardiac and mediastinal contours are normal. There is no evidence of focal pulmonary consolidation. There is no evidence of failure. No pleural effusions are visualized.[ IMPRESSION: No active disease in the chest. ACT 112: Negative or not required by law. Electronically signed by: Freddie Davila M.D. 08/09/2019 4:44 PM Dictated: 08/09/191643 Transcribed: 08/09/191643 Hospital Course (1) Chest pain: Pt is 44 y/o M without known PMH presented to ER with c/o left sided chest tightness today at 9AM lasting 5-10 minutes. Denies SOB, diaphoresis, N/V Possible related to hypertensive urgency Troponin x3 negative EKG showed sinus rhythm with non specific ST changes Cardiology on board Exercise stress echo was normal with no evidence of myocardial ischemia. Blood pressure elevated during stress exercise echo Received Aspirin 324mg in the ER and was starting on asa 81mg Chol 245, LDL 187 and HDL 36 Pt was advised to follow a low cholesterol diet Will defer to PCP to start on a low dose statin as outpatient Case discussed with cardiology and ok from cardiology standpoint to discharge home Clinically stable (2) Hypertensive urgency: Pt with probable untreated underlying HTN BP on admission 201/120 BP dropped 156/87 after receiving IV labetalol 20mg Continue amlodipine 5mg daily Lisinopril 10mg adding Pharmacology and major side effects about Lisinopril and Amlodipine discussed with patient Will check BMP in 1 week after starting the Lisinopril to monitor electrolytes and kidney function Continue monitor BP Dyslipidemia Chol 245, LDL 187 and HDL 36 Result discussed with patient He would like to try lifestyle modification for now and exercise Advised pt to follow a low cholesterol diet Check Lipid panel in 3 to 6 months DVT Prophylaxis Low risk, ambulate CODE STATUS Full Code Disposition Follow up with your PCP Dr. Keyes on 08/14 @ 1:45 PM Total Time Total Time Spent Total Time Spent (In Minutes): 35 minutes Total Time Includes: Examination of the Patient, Discharge Planning, Medication Reconciliation, Communication With Other Providers and Other Discharge Plan Discharge Items Patient Disposition: Home - Self-Care Reason For Visit: CHEST PAIN Discharge Diagnosis: Hypertensive Urgency Chest pain Activity: Resume your previous activity Non-emergency contact: Primary Care Provider Call non-emergency contact if: you have any medication questions Follow-up/Referrals: Damaso Keyes MD [Primary Care Provider] - Diet: Heart Healthy Addtl Attending Provider Instructions: Follow up with your Primary care provider Dr. Keyes on 08/14 @ 1:45 PM Since you are starting on Lisinopril, please check BMP in 1 week to monitor your electrolytes and kidney function Check your blood pressure and bring your blood pressure log at your next appointment with your physician Your cholesterol is elevated, please follow up a low cholesterol and low salt diet and exercise . Check Your cholesterol in 3 to 6 week (Your provider will order it) Pending Studies at Discharge: No Stand-Alone Forms: Call Back Authorization, [facility] [employer], Smoking Cessation Medications and DC Order Prescriptions: New amlodipine [Norvasc] 5 mg Tablet 5 mg PO QAM 30 Days Qty: 30 RF: 0 lisinopril 10 mg Tablet 10 mg PO QAM 30 Days Qty: 30 RF: 0 No Action No Known Home Medications RF: 0 Discharge Orders: Discharge Order (Routine); Ordered 08/10/19 Ordered By: Kamila Perea Admission Data Admit Date/Time: 08/09/19 18:54 Attending Provider: Kamila Perea Admit Provider: Mart Kendall Primary Care Provider: Damaso Keyes Other Providers: Mart Kendall ; Gus Mccollum Other Interventions: Discharge Summary Assessment (RN) Last Done: 08/10/19 14:17 DC Date/Time DO NOT enter until pt leaves facility: 08/10/19 15:34
== END 2019-08-10 15:34 | disposition home or self-care (01) ==
LOC: ED 16:02 → 2N 16:02 → SUATTDRO 18:54 → 2N 20:16